=== PATIENT | male | born 1985 | race Caucasian/White ===

== ENCOUNTER 2017-08-26 19:56 | Emergency (ER) | payer BC ==
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
== END 2017-08-26 21:00 | disposition home or self-care (01) ==
LOC: ER 19:56
DX: B00.1 Herpesviral vesicular dermatitis (principal); I10 Essential (primary) hypertension
CPT/HCPCS: Z7502